=== PATIENT | male | born 1985 | race Caucasian/White ===

== ENCOUNTER → 2016-09-04 | Emergency (ER) | payer OTHER | END | disposition home or self-care (01) | LOC: EMS 20:56 | DX: Z04.1 Encounter for examination and observation following transport accident (principal); V89.2XXA Person injured in unspecified motor-vehicle accident, traffic, initial encounter; Y93.89 Activity, other specified; Y92.89 Other specified places as the place of occurrence of the external cause; Y99.8 Other external cause status; Z53.21 Procedure and treatment not carried out due to patient leaving prior to being seen by health care provider ==

== ENCOUNTER 2016-10-19 20:03 | Inpatient (IN) | payer OTHER ==
[~2016-10-19] VITALS: Ht 185.4 cm; Wt 166.5 kg
[2016-10-19 20:33] LABS: GLUCOSE,POINT OF CARE 422 MG/DL (70-110)
[2016-10-19 22:04] LABS: BASOPHILS # (AUTO) 0.02 K/uL (0.00-0.20); BASOPHILS % (AUTO) 0.3 % (0.0-2.0); EOSINOPHILS # (AUTO) 0.14 K/uL (0.00-0.70); EOSINOPHILS % (AUTO) 2.21 % (1.0-6.0); HEMATOCRIT 38.5 % (41-53); HEMOGLOBIN 12.5 g/dL (13.5-17.5); LYMPHOCYTES # (AUTO) 1.3 K/uL (1.0-4.8); LYMPHOCYTES % (AUTO) 21.3 % (22.0-44.0); MEAN CORPUSCULAR HEMOGLOBIN 25.2 pg (26.0-34.0); MEAN CORPUSCULAR HGB CONC 32.6 G/dL (31.0-37.0); MEAN CORPUSCULAR VOLUME 77 fL (80-100); MONOCYTES # (AUTO) 0.5 K/uL (0.1-1.0); MONOCYTES % (AUTO) 7.6 % (2.0-9.0); NEUTROPHILS # (AUTO) 4.2 K/uL (1.8-7.7); NEUTROPHILS % (AUTO) 68.6 % (40.0-70.0); PLATELET COUNT (AUTO) 209 K/uL (150-450); RED BLOOD CELL COUNT(AUTO) 4.98 MIL/uL (4.50-5.90); RED CELL DISTRIBUTION WIDTH 15.9 % (11.5-14.5); WHITE BLOOD COUNT (AUTO) 6.2 K/uL (4.5-11.0)
[2016-10-19 22:12] LABS: APPEARANCE,URINE CLEAR (CLEAR); GLUCOSE, URINE (UA) >=1000 mg/dL (NEGATIVE); KETONES,URINE 15 mg/dL (NEGATIVE); LEUKOCYTE ESTERASE ,URINE NEGATIVE (NEGATIVE); OCCULT BLOOD,URINE NEGATIVE (NEGATIVE); PH,URINE 6.5 (5.0-8.0); PROTEIN,URINE NEGATIVE (NEGATIVE)
[2016-10-19 22:13] LABS: ALANINE AMINOTRANSFERASE 52 U/L (12-78); ALBUMIN 3.3 g/dL (3.4-5.0); ANION GAP 4 mmol/L (8-16); ASPARTATE AMINOTRANSFERASE 20 U/L (15-37); BILIRUBIN,TOTAL 0.3 mg/dL (0.1-1.0); CARBON DIOXIDE 32 mmol/L (22-29); CHLORIDE 97 mmol/L (98-107); GLOMERULAR FILTR. RATE CALC > 60 mL/min (>60); SODIUM SERUM 133 mmol/L (136-145); TOTAL PROTEIN, SERUM 7.8 g/dL (6.4-8.2); UREA NITROGEN, BLOOD 12 mg/dL (7-18)
[2016-10-19 22:13] LABS: ADD UA MICROSCOPIC YES
[2016-10-19 22:15] LABS: RBC,URINE 0-2 /HPF (0-2); SQUAMOUS EPITHELIAL CELL,UR Few /LPF (None Seen); WBC,URINE 0-2 /HPF (0-5)
[2016-10-19] MEDS ORDERED: SODIUM CHLORIDE 0.9% 1,000 ML IV ONE ×2 (22:15)
[2016-10-19] MEDS ORDERED: VANCOMYCIN HCL 1.5 GM in DEXTROSE 5%-WATER 250 ML IV ONE (22:15)
[2016-10-19] MEDS ORDERED: PIPERACILLIN/TAZO 3.375 GM/D5W 50 ML IV ONE (22:15)
[2016-10-19] MEDS: ONDANSETRON HCL 4 MG/2 ML VIAL IVP ONE ×2 (22:19→22:27)
[2016-10-19] MEDS: MORPHINE SULFATE 10 MG/ML SYRINGE IVP ONE ×2 (22:19→22:27)
[2016-10-19 22:20] LABS: LACTIC ACID 0.9 mmol/L (0.4-2.0)
[2016-10-19 22:26] LABS: RBC MORPHOLOGY COMMENT ABNORMAL RBC MORPH
[2016-10-20 01:12] LABS: GLUCOSE,POINT OF CARE 303 MG/DL (70-110)
[2016-10-20] MEDS ORDERED: INSULIN REGULAR, HUMAN 100 UNITS/ML SQ ONE (02:00)
[2016-10-20] MEDS ORDERED: POVIDONE-IODINE 10% 120 ML SOLUTION TP ONE (02:00)
[2016-10-20] MEDS ORDERED: LIDOCAINE HCL 1% 10 ML VIAL INJ ONE (02:00)
[2016-10-20] MEDS ORDERED: MORPHINE SULFATE 4 MG/ML SYRINGE IVP ONE (04:45)
[2016-10-20] MEDS ORDERED: ONDANSETRON HCL 4 MG/2 ML VIAL IVP ONE (04:45)
[2016-10-20 04:52] LABS: GLUCOSE,POINT OF CARE 235 MG/DL (70-110)
[2016-10-20] MEDS ORDERED: SODIUM CHLORIDE 0.9% 1,000 ML IV ONE (05:00)
[2016-10-20] MEDS ORDERED: METH10SO PO (05:07)
[2016-10-20 05:58] VITALS: BP 132/75
[2016-10-20] MEDS ORDERED: INSULIN REGULAR, HUMAN 100 UNITS/ML SQ PRN (06:00)
[2016-10-20] MEDS ORDERED: MORPHINE SULFATE 4 MG/ML SYRINGE IVP PRN (06:00)
[2016-10-20] MEDS ORDERED: HYDROCODONE/ACETAMINOPHEN 5-325 MG TABLET PO PRN (06:00)
[2016-10-20] MEDS ORDERED: ACETAMINOPHEN 325 MG TABLET PO PRN ×2 (06:00→07:15)
[2016-10-20] MEDS ORDERED: DEXTROSE 50%-WATER 25 GM/50 ML SYRINGE IVP PRN ×2 (06:00→07:30)
[2016-10-20 06:43] LABS: GLUCOSE COMMENT 1 Received Meds; GLUCOSE,POINT OF CARE 247 MG/DL (70-110)
[2016-10-20] MEDS ORDERED: PNEUMOCOCCAL VACCINE POLYVALENT 0.5 ML VIAL [PPSV23] IM ONE ×2 (06:45→16:00)
[2016-10-20] MEDS ORDERED: VANCOMYCIN HCL 1.5 GM in DEXTROSE 5%-WATER 250 ML IV SCH (07:00)
[2016-10-20] MEDS ORDERED: PIPERACILLIN/TAZO 3.375 GM/D5W 50 ML IV SCH (07:00)
[2016-10-20 07:10] LABS: BASOPHILS % (AUTO) 0.2 % (0.0-2.0); EOSINOPHILS % (AUTO) 1.6 % (1.0-6.0); HEMATOCRIT 37.9 % (41-53); HEMOGLOBIN 11.7 g/dL (13.5-17.5); LYMPHOCYTES % (AUTO) 14.9 % (22.0-44.0); MEAN CORPUSCULAR HEMOGLOBIN 24.1 pg (26.0-34.0); MEAN CORPUSCULAR HGB CONC 30.8 G/dL (31.0-37.0); MEAN CORPUSCULAR VOLUME 78 fL (80-100); MONOCYTES # (AUTO) 0.5 K/uL (0.1-1.0); MONOCYTES % (AUTO) 6.9 % (2.0-9.0); NEUTROPHILS # (AUTO) 5.3 K/uL (1.8-7.7); NEUTROPHILS % (AUTO) 76.4 % (40.0-70.0); PLATELET COUNT (AUTO) 268 K/uL (150-450); RED BLOOD CELL COUNT(AUTO) 4.85 MIL/uL (4.50-5.90); RED CELL DISTRIBUTION WIDTH 16.2 % (11.5-14.5)
[2016-10-20] MEDS ORDERED: MAGNESIUM HYDROXIDE SUSPENSION 30 ML UDCUP PO PRN (07:15)
[2016-10-20] MEDS ORDERED: MORPHINE SULFATE 2 MG/ML SYRINGE IVP PRN (07:15)
[2016-10-20] MEDS ORDERED: OxyCODONE HCL/ACETAMINOPHEN 5-325 MG TABLET PO PRN (07:15)
[2016-10-20 07:29] LABS: ALANINE AMINOTRANSFERASE 47 U/L (12-78); ANION GAP 7 mmol/L (8-16); ASPARTATE AMINOTRANSFERASE 18 U/L (15-37); BILIRUBIN,TOTAL 0.5 mg/dL (0.1-1.0); CALCIUM, TOTAL 8.2 mg/dL (8.8-10.5); CARBON DIOXIDE 28 mmol/L (22-29); CHLORIDE 100 mmol/L (98-107); CREATININE 0.54 mg/dL (0.60-1.30); GLOMERULAR FILTR. RATE CALC > 60 mL/min (>60); POTASSIUM 3.8 mmol/L (3.5-5.1); SODIUM SERUM 135 mmol/L (136-145); UREA NITROGEN, BLOOD 8 mg/dL (7-18)
[2016-10-20 07:43] VITALS: BP 120/72
[2016-10-20 07:45] LABS: ALBUMIN 2.9 g/dL (3.4-5.0)
[2016-10-20] MEDS: DOCUSATE SODIUM 100 MG CAPSULE PO SCH ×2 (08:26→21:00)
[2016-10-20] MEDS: METHADONE HCL 10 MG TABLET PO SCH (08:26)
[2016-10-20] MEDS: PANTOPRAZOLE SODIUM 40 MG DR TABLET PO SCH (08:26)
[2016-10-20] MEDS: HEPARIN SODIUM,PORCINE 5,000 UNITS/ML VIAL SQ SCH ×2 (08:26→16:18)
[2016-10-20] MEDS: MetFORMIN HCL 850 MG TABLET PO SCH ×2 (09:00→18:00)
[2016-10-20] MEDS ORDERED: ENOXAPARIN SODIUM 40 MG/0.4 ML PF SYRINGE SQ SCH (09:00)
[2016-10-20] MEDS ORDERED: PANTOPRAZOLE SODIUM 40 MG/VIAL IVP SCH (09:00)
[2016-10-20] MEDS: PIPERACILLIN/TAZO 3.375 GM/D5W 50 ML IV SCH ×2 (09:53→15:10)
[2016-10-20 10:03] LABS: RBC MORPHOLOGY COMMENT ABNORMAL RBC MORPH
[2016-10-20 11:53] VITALS: BP 147/79
[2016-10-20] MEDS: VANCOMYCIN HCL 1.25 GM in DEXTROSE 5%-WATER 250 ML IV SCH ×2 (12:16→18:03)
[2016-10-20 12:27] LABS: GLUCOSE COMMENT 1 Received Meds; GLUCOSE,POINT OF CARE 268 MG/DL (70-110)
[2016-10-20] MEDS: INSULIN ASPART 100 UNITS/ML SQ PRN ×3 (12:29→21:45)
[2016-10-20 15:12] VITALS: BP 132/65
[2016-10-20 17:42] LABS: GLUCOSE,POINT OF CARE 250 MG/DL (70-110)
[2016-10-20 19:54] VITALS: BP 138/87
[2016-10-21 00:47] LABS: GLUCOSE COMMENT 1 Received Meds; GLUCOSE,POINT OF CARE 238 MG/DL (70-110)
[2016-10-21 01:02] VITALS: BP 153/89
[2016-10-21 04:38] VITALS: BP 140/81
[2016-10-21] MEDS: INSULIN ASPART 100 UNITS/ML SQ PRN ×4 (05:43→20:37)
[2016-10-21 06:42] LABS: GLUCOSE COMMENT 1 Received Meds; GLUCOSE,POINT OF CARE 231 MG/DL (70-110)
[2016-10-21 07:02] LABS: ANION GAP 7 mmol/L (8-16); CARBON DIOXIDE 29 mmol/L (22-29); CHLORIDE 98 mmol/L (98-107); CREATININE 0.66 mg/dL (0.60-1.30); GLOMERULAR FILTR. RATE CALC > 60 mL/min (>60); POTASSIUM 3.6 mmol/L (3.5-5.1); SODIUM SERUM 134 mmol/L (136-145); UREA NITROGEN, BLOOD 6 mg/dL (7-18)
[2016-10-21 07:38] VITALS: BP 125/66
[2016-10-21] MEDS: DOCUSATE SODIUM 100 MG CAPSULE PO SCH ×2 (08:00→21:00)
[2016-10-21] MEDS: HEPARIN SODIUM,PORCINE 5,000 UNITS/ML VIAL SQ SCH ×3 (08:01→16:12)
[2016-10-21] MEDS: METHADONE HCL 10 MG TABLET PO SCH (08:01)
[2016-10-21] MEDS: PANTOPRAZOLE SODIUM 40 MG DR TABLET PO SCH (08:01)
[2016-10-21] MEDS: MetFORMIN HCL 850 MG TABLET PO SCH (08:52)
[2016-10-21] MEDS ORDERED: MUPIROCIN CALCIUM 2% 22 GM OINTMENT TP SCH (09:00)
[2016-10-21] MEDS ORDERED: CHLORHEXIDINE GLUCONATE 4% 118 ML TOPICAL LIQUID TP SCH (09:00)
[2016-10-21] MEDS ORDERED: LIDOCAINE HCL/PF 1% 2 ML VIAL IM ONE (11:00)
[2016-10-21] MEDS ORDERED: CefTRIAXone SODIUM 1 GM/VIAL IM ONE (11:00)
[2016-10-21 11:19] VITALS: BP 141/89
[2016-10-21 12:07] LABS: GLUCOSE,POINT OF CARE 245 MG/DL (70-110)
[2016-10-21] MEDS: VANCOMYCIN HCL 1.25 GM in DEXTROSE 5%-WATER 250 ML IV SCH ×2 (13:00→19:40)
[2016-10-21 15:34] VITALS: BP 145/92
[2016-10-21] MEDS ORDERED: SODIUM CHLORIDE 0.9% 100 ML ONE (15:52)
[2016-10-21] MEDS ORDERED: IOVERSOL 350 MG/ML 150 ML VIAL ONE (15:52)
[2016-10-21 16:42] LABS: GLUCOSE,POINT OF CARE 226 MG/DL (70-110)
[2016-10-21] MEDS ORDERED: MetFORMIN HCL 500 MG TABLET PO SCH (18:00)
[2016-10-21] MEDS: PIPERACILLIN/TAZO 3.375 GM/D5W 50 ML IV SCH (21:00)
[2016-10-21 21:32] LABS: GLUCOSE,POINT OF CARE 209 MG/DL (70-110)
[2016-10-22 00:21] VITALS: BP 157/97
[2016-10-22 00:28] VITALS: BP 157/91
[2016-10-22] MEDS: VANCOMYCIN HCL 1.25 GM in DEXTROSE 5%-WATER 250 ML IV SCH ×2 (00:50→06:26)
[2016-10-22] MEDS: HEPARIN SODIUM,PORCINE 5,000 UNITS/ML VIAL SQ SCH ×2 (00:53→08:49)
[2016-10-22] MEDS: PIPERACILLIN/TAZO 3.375 GM/D5W 50 ML IV SCH (02:49)
[2016-10-22] MEDS ORDERED: SODIUM CHLORIDE 0.9% 500 ML IV ONE (05:37)
[2016-10-22 05:48] LABS: GLUCOSE COMMENT 1 Received Meds; GLUCOSE,POINT OF CARE 209 MG/DL (70-110)
[2016-10-22 06:10] LABS: ANION GAP 13 mmol/L (8-16); CALCIUM, TOTAL 6.1 mg/dL (8.8-10.5); CARBON DIOXIDE 18 mmol/L (22-29); CHLORIDE 108 mmol/L (98-107); CHOL/HDL RATIO 2.8 (4.2-7.3); CREATININE 0.44 mg/dL (0.60-1.30); GLOMERULAR FILTR. RATE CALC > 60 mL/min (>60); SODIUM SERUM 139 mmol/L (136-145); UREA NITROGEN, BLOOD 6 mg/dL (7-18)
[2016-10-22] MEDS: INSULIN ASPART 100 UNITS/ML SQ PRN (06:26)
[2016-10-22 06:59] LABS: POTASSIUM 2.5 mmol/L (3.5-5.1)
[2016-10-22 07:15] VITALS: BP 163/119
[2016-10-22] MEDS ORDERED: POTASSIUM CHLORIDE 20 MEQ ER TABLET PO PRN ×2 (07:15)
[2016-10-22] MEDS: POTASSIUM CHL 10 MEQ/WATER 50 ML IV PRN ×2 (08:43→10:06)
== END 2016-10-22 11:00 | disposition left against medical advice (07) | DRG 383 ==
LOC: EMS 20:04 → 6N 10-20 04:30
PROVIDERS: ADMIT Internal Medicine; ATTEND Internal Medicine
PROC: 0H9EXZZ Drainage of Left Lower Arm Skin, External Approach (ICD-10-PCS; principal; 2016-10-20)
DX: L03.114 Cellulitis of left upper limb (principal); E44.0 Moderate protein-calorie malnutrition; E11.65 Type 2 diabetes mellitus with hyperglycemia; Z68.42 Body mass index [BMI] 45.0-49.9, adult; L02.414 Cutaneous abscess of left upper limb; L02.413 Cutaneous abscess of right upper limb; E66.01 Morbid (severe) obesity due to excess calories; M54.30 Sciatica, unspecified side; I89.1 Lymphangitis; F19.10 Other psychoactive substance abuse, uncomplicated; F11.10 Opioid abuse, uncomplicated; J36 Peritonsillar abscess; Z28.21 Immunization not carried out because of patient refusal; Z79.899 Other long term (current) drug therapy; Z91.19 Patient's noncompliance with other medical treatment and regimen
CPT/HCPCS: 73201; 82962; 83036; 83605; 87040; 87070; 87081; 87205; 96365; 96366; 96368; 96375; 96376; 99285; J0696; J1644; J1815; J2270; J2405; J2543; J3370; J3480; J3490; J7030; J7040; J7050; J7060